=== PATIENT | female | born 1950 | race Caucasian/White ===

== ENCOUNTER 2018-01-25 23:04 | Inpatient (IN) | payer OTHER, BC ==
[~2018-01-25] VITALS: Ht 160 cm; Wt 63.0 kg
[~2018-01-25 23:04] MED LIST: COLACE100 MG PO; COMPAZINE10 MG PO; LAXATIVE5 M1 PO; LOVENOX40 MG/0.4 SC; MAGNESIUM400 M1 PO; ONCE DAILY1 EACH PO; ONDANSETRON HCL8 MG PO; TYLENOL SINUS1 EA16 PO
[2018-01-26 00:31] LABS: HEMOGLOBIN 10.1 G/DL (11.9-15.5); MCH 30.7 PG (29.0-34.0); MCHC 33.7 G/DL (30.0-36.0); MCV 91.2 FL (83-99); PLATELET COUNT 148 K/uL (156-360); RBC DIS.WIDTH-CV 16.5 % (11.8-14.6); RBC DIS.WIDTH-SD 54.7 % (39-53); RED BLOOD COUNT 3.29 M/uL (3.80-5.20); WHITE BLOOD COUNT 2.5 K/uL (4.1-10.2)
[2018-01-26 00:40] LABS: CHLORIDE 98 mEq/L (99-109); POTASSIUM 4.2 mEq/L (3.7-5.4)
[2018-01-26 00:42] LABS: GLUCOSE 101 mg/dL (70-99); PTT 25.2 SEC (25-37)
[2018-01-26 00:43] LABS: TOTAL PROTEIN 6.5 g/dL (6.4-8.3)
[2018-01-26 00:44] LABS: TOTAL BILIRUBIN 0.4 mg/dL (0.0-1.0)
[2018-01-26 00:46] LABS: ALKALINE PHOSPHATASE 68 IU/L (3-129); CREATININE 0.8 mg/dL (0.6-1.3); GFR ESTIMATE (CALCULATED) > 59 mL/min/
[2018-01-26 00:47] LABS: UREA NITROGEN (BUN) 13 mg/dL (9-23)
[2018-01-26 00:48] LABS: AST (GOT) 25 IU/L (2-34); SODIUM 133 mEq/L (136-147)
[2018-01-26 00:49] LABS: ALT (GPT) 25 IU/L (3-49); LIPASE 16 U/L (1.0-51.0)
[2018-01-26 00:50] LABS: APPEARANCE CLEAR ((CLEAR)); BILIRUBIN NEGATIVE; BLOOD NEGATIVE; COLOR STRAW ((YELLOW)); GLUCOSE (STRIP) NEGATIVE; KETONES NEGATIVE; LEUKOCYTES NEGATIVE; NITRITE NEGATIVE; PROTEIN (STRIP) NEGATIVE; SPECIFIC GRAVITY 1.009 (1.000-1.030); UCUL ADDED? NO; UROBILINOGEN 0.2 MG/DL (0.2-1.0)
[2018-01-26 00:52] LABS: TROP-I INTERPRETATION NEGATIVE; TROPONIN-I < 0.01 ng/mL (0.0-0.30)
[2018-01-26 01:36] LABS: BASOPHIL (%) 0.4 % (0-1); EOSINOPHIL (%) 3.2 % (0-5); EOSINOPHIL COUNT 0.1 K/uL (0-0.3); IMMATURE GRANULOCYTE (%) 0.8 % (0.0-0.7); LYMPHOCYTE (%) 29.1 % (15-42); LYMPHOCYTE COUNT 0.7 K/uL (1.0-2.8); MONOCYTE COUNT 0.1 K/uL (0-0.8); NEUTROPHIL (%) 64.5 % (45-76); NEUTROPHIL COUNT 1.6 K/uL (1.8-6.4); PLAT.SUFFICIENCY ADEQUATE
[2018-01-26 07:10] VITALS: BP 108/56
[2018-01-26] MEDS ORDERED: VITAMIN D400 UNIT PO (07:28)
[2018-01-26 11:38] VITALS: BP 120/62
[2018-01-26 15:44] VITALS: BP 118/63
[2018-01-26 20:45] VITALS: BP 106/61
[2018-01-27 00:13] VITALS: BP 110/62
[2018-01-27 04:11] VITALS: BP 114/65
[2018-01-27 06:14] LABS: HEMATOCRIT 30.5 % (36.0-46.0); HEMOGLOBIN 9.9 G/DL (11.9-15.5); MCH 29.6 PG (29.0-34.0); MCHC 32.5 G/DL (30.0-36.0); MCV 91.3 FL (83-99); PLATELET COUNT 133 K/uL (156-360); RBC DIS.WIDTH-CV 16.4 % (11.8-14.6); RBC DIS.WIDTH-SD 54.7 % (39-53); RED BLOOD COUNT 3.34 M/uL (3.80-5.20); WHITE BLOOD COUNT 2.4 K/uL (4.1-10.2)
[2018-01-27 06:39] LABS: CHLORIDE 105 MEQ/L (99-109); CREATININE 0.7 MG/DL (0.6-1.3); GFR ESTIMATE (CALCULATED) > 59 mL/min/; GLUCOSE 93 mg/dL (70-99); UREA NITROGEN (BUN) 10 mg/dL (9-23)
[2018-01-27 06:41] LABS: SODIUM 141 MEQ/L (136-147)
[2018-01-27 07:47] VITALS: BP 121/61
[2018-01-27 15:31] VITALS: BP 117/63
[2018-01-27 19:30] VITALS: BP 116/61
[2018-01-27 23:52] VITALS: BP 103/56
[2018-01-28] VITALS: BP 121/78
[2018-01-28 04:27] VITALS: BP 108/65
[2018-01-28 08:01] LABS: HEMATOCRIT 29.5 % (36.0-46.0); HEMOGLOBIN 9.6 G/DL (11.9-15.5); MCH 29.8 PG (29.0-34.0); MCHC 32.5 G/DL (30.0-36.0); MCV 91.6 FL (83-99); PLATELET COUNT 109 K/uL (156-360); RBC DIS.WIDTH-CV 16.2 % (11.8-14.6); RBC DIS.WIDTH-SD 54.5 % (39-53); RED BLOOD COUNT 3.22 M/uL (3.80-5.20); WHITE BLOOD COUNT 2.4 K/uL (4.1-10.2)
[2018-01-28] MEDS ORDERED: AUGMENTIN875 MG PO (08:41)
[2018-01-28 08:44] VITALS: BP 120/72
== END 2018-01-28 09:37 | disposition home or self-care (01) | DRG 202 ==
LOC: EME 23:04 → 2EASTP 01-26 04:35 → EDOF 01-26 04:35 → ENRESERV 01-26 04:44 → 2EASTP 01-26 07:14
PROVIDERS: Emergency Medicine; Hospitalist
DX: J20.9 Acute bronchitis, unspecified (principal); J21.9 Acute bronchiolitis, unspecified; J02.9 Acute pharyngitis, unspecified; J32.9 Chronic sinusitis, unspecified; L27.0 Generalized skin eruption due to drugs and medicaments taken internally; T36.8X5A Adverse effect of other systemic antibiotics, initial encounter; C56.9 Malignant neoplasm of unspecified ovary; D61.810 Antineoplastic chemotherapy induced pancytopenia; T45.1X5A Adverse effect of antineoplastic and immunosuppressive drugs, initial encounter; E78.00 Pure hypercholesterolemia, unspecified; E78.5 Hyperlipidemia, unspecified; R00.0 Tachycardia, unspecified
CPT/HCPCS: 71046; 71275; 80048; 80053; 81003; 83605; 83690; 84484; 85025; 85027; 85610; 85730; 87040; 87502; 87651 90; 93005; 99281; 99285; J0295; J0692; J1650; J1956; J3370; J7030; J7050; Q0177